=== PATIENT | female | born 1990 | race African-American/Black ===

== ENCOUNTER 2016-07-15 10:49 | Outpatient (CLI) | payer OTHER ==
[~2016-07-15 10:49] MED LIST: ACIDOPHILUS LA1 EACH PO; AUGMENTIN 875875 MG PO; B-12500 MCG PO; BENADRYL25 MG PO; COLACE100 MG PO; DOLOPHINE HCL10 MG; DOLOPHINE HCL10 MG PO; IBUPROFEN 200200 M1 PO; IBUPROFEN 400400 M1 PO; METHADONE HCL40 MG PO; TRAMADOL 50 MG50 MG PO; TYLENOL325 MG PO
[2016-07-15 15:07] VITALS: BP 87/43; BP 87/49
[2016-07-15 18:00] VITALS: BP 101/72; BP 88/52; BP 89/51
[2016-07-15 18:21] VITALS: BP 88/52; BP 89/51
== END 2016-07-15 20:45 | disposition home or self-care (01) ==
LOC: OPONC 10:49 → 5S 16:46 → OPONC 20:45
DX: D57.00 Hb-SS disease with crisis, unspecified (principal)
CPT/HCPCS: 10785; 91030

== ENCOUNTER → 2016-07-22 | Outpatient (CLI) | payer OTHER | LOC: RAD 09:58 | DX: M25.552 Pain in left hip (principal); D57.1 Sickle-cell disease without crisis ==